=== PATIENT | female | born 2000 | race Caucasian/White ===

== ENCOUNTER 2024-04-10 04:45 | Inpatient (IN) | payer OTHER, MEDICAID ==
[~2024-04-10] VITALS: Ht 172.7 cm; Wt 102.0 kg
[2024-04-10 06:16] LABS: GLUCOMETER DEV NAME(LOC) POC.BV; POC SARS-COV2 AG, FIA NEGATIVE (NEGATIVE)
[2024-04-10] MEDS ORDERED: LORazepam 2 MG TABLET PO PRN (16:15)
[2024-04-10] MEDS ORDERED: HALOPERIDOL 5 MG TABLET PO PRN (16:15)
[2024-04-10 18:00] VITALS: BP 136/87; PULSE 74; RESP 18; TEMP 97.5
[2024-04-10] MEDS: ZOLPIDEM TARTRATE 10 MG TABLET PO PRN (21:42)
[2024-04-11 08:48] LABS: APPEARANCE,URINE CLEAR (CLEAR); BILIRUBIN,URINE NEGATIVE (NEGATIVE); COLOR,URINE LIGHT YELLOW (YELLOW); GLUCOSE, URINE (UA) NEGATIVE (NEGATIVE); KETONES,URINE NEGATIVE (NEGATIVE); LEUKOCYTE ESTERASE ,URINE NEGATIVE (NEGATIVE); NITRATE,URINE NEGATIVE (NEGATIVE); OCCULT BLOOD,URINE NEGATIVE (NEGATIVE); PH,URINE 6.5 (5.0-8.0); PH,URINE DRUG SCREEN 6.5 (5.0-8.0); PROTEIN,URINE NEGATIVE (NEGATIVE); UROBILINOGEN,URINE <=1.0 mg/dL (<=1.0)
[2024-04-11 08:56] LABS: ALCOHOL, URINE DRUG SCREEN NEGATIVE (NEGATIVE); AMPHET/METH SCREEN,URINE NEGATIVE (NEGATIVE); BARBITURATE SCREEN, URINE NEGATIVE (NEGATIVE); BENZODIAZEPINES SCREEN,URINE NEGATIVE (NEGATIVE); CANNABINOID SCREEN,URINE POSITIVE (NEGATIVE); COCAINE SCREEN,URINE NEGATIVE (NEGATIVE); METHADONE SCREEN, URINE NEGATIVE (NEGATIVE); OPIATE SCREEN,URINE NEGATIVE (NEGATIVE); PHENCYCLIDINE SCREEN,URINE NEGATIVE (NEGATIVE)
[2024-04-11 09:09] LABS: CHOL/HDL RATIO 3.5 (3.9-5.7); FREE T4 (FREE THYROXINE) 1.03 ng/dL (0.76-1.46); T4 (THYROXINE) 8.5 mcg/dL (4.7-13.3); THYROID STIMULATING HORMONE 2.26 uIU/mL (0.36-3.74)
[2024-04-11 10:06] VITALS: BP 130/78; PULSE 71; RESP 16; TEMP 97.9
[2024-04-11] MEDS ORDERED: BuPROPion HCL 100 MG TABLET PO SCH (11:30)
[2024-04-11] MEDS: BuPROPion HCL 100 MG SR TABLET PO SCH (12:32)
[2024-04-11 20:35] VITALS: BP 130/99; PULSE 68; RESP 18; TEMP 97.4
[2024-04-12 08:21] VITALS: BP 142/89; PULSE 78; RESP 17; TEMP 97; O2SAT 98
[2024-04-12 21:56] VITALS: BP 137/79; PULSE 64; RESP 18; TEMP 97.7
[2024-04-13 08:55] VITALS: BP 120/71; PULSE 82; RESP 18; TEMP 97.3; O2SAT 96
[2024-04-13] MEDS ORDERED: BUPR-225 PO ×2 (12:29→13:11)
[2024-04-13 13:37] VITALS: BP_SYST 109; BP_SYST 120; BP_DIAS 71; BP_DIAS 81; PULSE 82; PULSE 83; RESP 17; RESP 18; TEMP 97.3; O2SAT 100
== END 2024-04-13 18:51 | disposition home or self-care (01) | DRG 885 ==
LOC: B2S 08:40
PROVIDERS: ADMIT Psychiatry & Neurology Child & Adolescent Psychiatry; ATTEND Psychiatry & Neurology Child & Adolescent Psychiatry
PROC: GZ58ZZZ Individual Psychotherapy, Cognitive-Behavioral (ICD-10-PCS; principal; 2024-04-11)
DX: F33.2 Major depressive disorder, recurrent severe without psychotic features (principal); F41.9 Anxiety disorder, unspecified; F60.3 Borderline personality disorder; G47.00 Insomnia, unspecified; K59.00 Constipation, unspecified; S51.811A Laceration without foreign body of right forearm, initial encounter; Z20.822 Contact with and (suspected) exposure to COVID-19; S51.812A Laceration without foreign body of left forearm, initial encounter; X78.9XXA Intentional self-harm by unspecified sharp object, initial encounter; S62.91XA Unspecified fracture of right hand, initial encounter for closed fracture; Y93.89 Activity, other specified; Y92.89 Other specified places as the place of occurrence of the external cause; Y99.8 Other external cause status
CPT/HCPCS: 80061; 80307; 81003; 84436; 84439; 84443; 86592; 36415-L1; 36415-TC; Z7610

== ENCOUNTER 2024-04-10 09:41 | Emergency (ER) | payer OTHER ==
[~2024-04-10] VITALS: Ht 167.6 cm; Wt 100.0 kg
[2024-04-10 10:12] VITALS: TEMP 98.1
[2024-04-10] MEDS: PERTUSS(ACELL),DIPH,TET/PF 0.5 ML SYRINGE [ADULT] IM. ONE (12:20)
[2024-04-10 12:46] LABS: BASOPHILS % (AUTO) 0.6 % (0.0-2.0); EOSINOPHILS % (AUTO) 1.8 % (1.0-6.0); HEMOGLOBIN 12.9 g/dL (12.0-16.0); LYMPHOCYTES # (AUTO) 2.7 K/uL (1.0-4.8); LYMPHOCYTES % (AUTO) 22.2 % (22.0-44.0); MEAN CORPUSCULAR HEMOGLOBIN 27.8 pg (26.0-34.0); MEAN CORPUSCULAR HGB CONC 32.3 G/dL (31.0-37.0); MEAN CORPUSCULAR VOLUME 86 fL (80-100); MONOCYTES # (AUTO) 0.7 K/uL (0.1-1.0); NEUTROPHILS # (AUTO) 8.3 K/uL (1.8-7.7); NEUTROPHILS % (AUTO) 69.4 % (40.0-70.0); PLATELET COUNT (AUTO) 340 K/uL (150-450); RED BLOOD CELL COUNT(AUTO) 4.64 MIL/uL (4.00-5.20); RED CELL DISTRIBUTION WIDTH 13.8 % (11.5-14.5)
[2024-04-10 12:57] LABS: ANION GAP 9 mmol/L (8-16); CALCIUM, TOTAL 9.4 mg/dL (8.8-10.5); CARBON DIOXIDE 26 mmol/L (22-29); CHLORIDE 103 mmol/L (98-107); CREATININE 0.88 mg/dL (0.60-1.30); GLOMERULAR FILTR. RATE CALC > 60 mL/min (>60); GLUCOSE,RANDOM 86 mg/dL (70-110); POTASSIUM 3.8 mmol/L (3.5-5.1); SODIUM SERUM 138 mmol/L (136-145); UREA NITROGEN, BLOOD 16 mg/dL (7-18)
[2024-04-10 13:10] LABS: HCG,QUANTITATIVE < 1 mIU/mL (0-6)
[2024-04-10 15:18] LABS: COVID AG,FIA SOURCE NASAL SWAB
[2024-04-10 15:45] VITALS: BP 120/85; PULSE 65; RESP 14
[2024-04-10 15:46] LABS: SARS-COV2 (COVID) ANTIGEN,FIA Negative (Negative)
== END 2024-04-10 23:46 | disposition home or self-care (01) ==
LOC: EMS 09:41
DX: S51.812A Laceration without foreign body of left forearm, initial encounter (principal); F32.A Depression, unspecified; Z20.822 Contact with and (suspected) exposure to COVID-19; W45.8XXA Other foreign body or object entering through skin, initial encounter; Y93.89 Activity, other specified; Y92.89 Other specified places as the place of occurrence of the external cause; Y99.8 Other external cause status
CPT/HCPCS: 80048; 84702; 85025; 90471; 90715; 99283

== ENCOUNTER 2024-08-06 10:12 | Emergency (ER) | payer OTHER ==
[~2024-08-06] VITALS: Ht 172.7 cm; Wt 91.0 kg
[~2024-08-06 10:12] MED LIST: BUPR-225 PO
[2024-08-06 11:01] LABS: COVID AG,FIA SOURCE NPH
[2024-08-06 11:02] LABS: BASOPHILS % (AUTO) 0.9 % (0.0-2.0); EOSINOPHILS % (AUTO) 5.6 % (1.0-6.0); HEMATOCRIT 40.2 % (36-46); HEMOGLOBIN 13.3 g/dL (12.0-16.0); LYMPHOCYTES # (AUTO) 2.2 K/uL (1.0-4.8); MEAN CORPUSCULAR HEMOGLOBIN 28.9 pg (26.0-34.0); MEAN CORPUSCULAR HGB CONC 33.1 G/dL (31.0-37.0); MEAN CORPUSCULAR VOLUME 87 fL (80-100); MONOCYTES # (AUTO) 0.5 K/uL (0.1-1.0); MONOCYTES % (AUTO) 5.7 % (2.0-9.0); NEUTROPHILS # (AUTO) 5.4 K/uL (1.8-7.7); NEUTROPHILS % (AUTO) 62.8 % (40.0-70.0); PLATELET COUNT (AUTO) 333 K/uL (150-450); RED CELL DISTRIBUTION WIDTH 13.9 % (11.5-14.5); WHITE BLOOD COUNT (AUTO) 8.6 K/uL (4.5-11.0)
[2024-08-06 11:13] LABS: APPEARANCE,URINE CLEAR (CLEAR); BILIRUBIN,URINE NEGATIVE (NEGATIVE); COLOR,URINE COLORLESS (YELLOW); GLUCOSE, URINE (UA) NEGATIVE (NEGATIVE); KETONES,URINE NEGATIVE (NEGATIVE); LEUKOCYTE ESTERASE ,URINE TRACE (NEGATIVE); NITRATE,URINE NEGATIVE (NEGATIVE); OCCULT BLOOD,URINE NEGATIVE (NEGATIVE); PROTEIN,URINE NEGATIVE (NEGATIVE); SPECIFIC GRAVITIY, URINE 1.005 (1.003-1.030); UROBILINOGEN,URINE <=1.0 mg/dL (<=1.0)
[2024-08-06 11:25] LABS: BACTERIA,URINE None Seen /HPF (None Seen); RBC,URINE None Seen /HPF (0-2); SQUAMOUS EPITHELIAL CELL,UR Few /LPF (None Seen)
[2024-08-06 11:33] LABS: ANION GAP 12 mmol/L (8-16); CALCIUM, TOTAL 8.6 mg/dL (8.8-10.5); CARBON DIOXIDE 24 mmol/L (22-29); CHLORIDE 102 mmol/L (98-107); CREATININE 0.71 mg/dL (0.60-1.30); GLOMERULAR FILTR. RATE CALC > 60 mL/min (>60); GLUCOSE,RANDOM 123 mg/dL (70-110); POTASSIUM 3.7 mmol/L (3.5-5.1); SODIUM SERUM 138 mmol/L (136-145); UREA NITROGEN, BLOOD 10 mg/dL (7-18)
[2024-08-06 11:36] LABS: AMPHET/METH SCREEN,URINE NEGATIVE (NEGATIVE); BARBITURATE SCREEN, URINE NEGATIVE (NEGATIVE); BENZODIAZEPINES SCREEN,URINE NEGATIVE (NEGATIVE); CANNABINOID SCREEN,URINE NEGATIVE (NEGATIVE); COCAINE SCREEN,URINE NEGATIVE (NEGATIVE); METHADONE SCREEN, URINE NEGATIVE (NEGATIVE); OPIATE SCREEN,URINE NEGATIVE (NEGATIVE); PHENCYCLIDINE SCREEN,URINE NEGATIVE (NEGATIVE)
[2024-08-06 11:37] LABS: ALCOHOL, URINE DRUG SCREEN NEGATIVE (NEGATIVE)
[2024-08-06 11:40] LABS: ALANINE AMINOTRANSFERASE 20 U/L (12-78); ALBUMIN 3.6 g/dL (3.4-5.0); ALCOHOL, BLOOD (SERUM) < 3 mg/dL (0-10); ALKALINE PHOSPHATASE 79 U/L (46-116); ASPARTATE AMINOTRANSFERASE 16 U/L (15-37); BILIRUBIN,TOTAL 0.5 mg/dL (0.1-1.0); TOTAL PROTEIN, SERUM 7.4 g/dL (6.4-8.2)
[2024-08-06 11:45] LABS: SALICYLATE 0.9 mg/dL (2.8-20.0)
[2024-08-06 11:57] LABS: SARS-COV2 (COVID) ANTIGEN,FIA Negative (Negative)
[2024-08-06 11:59] LABS: HCG,QUANTITATIVE < 1 mIU/mL (0-6)
[2024-08-06 12:08] LABS: ACETAMINOPHEN < 2 mcg/mL (10-30)
[2024-08-06 12:27] VITALS: TEMP 99
[2024-08-06 15:45] VITALS: BP 128/61; PULSE 65; RESP 14; O2SAT 100
== END 2024-08-06 19:01 | disposition short-term general hospital (02) ==
LOC: EMS 10:27
DX: T42.6X2A Poisoning by other antiepileptic and sedative-hypnotic drugs, intentional self-harm, initial encounter (principal); R45.851 Suicidal ideations; F32.9 Major depressive disorder, single episode, unspecified; F41.9 Anxiety disorder, unspecified; Z79.899 Other long term (current) drug therapy; Z20.822 Contact with and (suspected) exposure to COVID-19; Y92.89 Other specified places as the place of occurrence of the external cause
CPT/HCPCS: 99291; 87426; 80048; 80076; 81001; 83735; 84702; 85025; 36415; 93005; 80307; G0480; G0481